=== PATIENT | female | born 1950 | race Caucasian/White ===

== ENCOUNTER → 2017-10-16 | Outpatient (CLI) | payer OTHER, MEDICAID ==
[~2017-10-16] MED LIST: ACETAMINOPHEN325 M1 PO; ADVAIR 250-501 EACH INH; AMBIEN 5 MG TABL5 M1 PO; AMITRIPTYLINE H25 M2 PO; AMLODIPINE BESY10 MG PO; AMLODIPINE BESYL5 MG PO; ASPIRIN EC81 M1 PO; ASPIRIN81 M2 PO; AVELOX 400 MG400 M1 PO; BUSPAR PO; BUSPAR30 MG; BUSPIRONE HCL7.5 MG PO; CALCIUM 500 +1 EAC5 PO; CALCIUM 600 +1 EAC1 PO; CARVEDILOL6.25 MG PO; CLONIDINE HCL0.2 M2 PO; CYMBALTA60 MG PO; DEMADEX10 MG PO; DULERA; DULERA 200 MCG/13 GM INH; ENDOCET 5-3251 EACH PO; FLEXERIL PO; FLONASE 0.05%50 MCG NASAL; GUAIFENESIN400 MG PO; HYDROCODONE-AP1 EAC6 PO; HYDROXYZINE HCL25 M1 PO; KLOR-CON 1010 MEQ PO; LASIX 20 MG TAB20 MG PO; LISINOPRIL20 MG PO; MAGNESIUM250 M1 PO; MAGNESIUM400 MG PO; MIRAPEX0.5 MG PO; MULTIVITAMINS PO; MULTIVITAMINS1 EAC7; NEURONTIN 300300 M1 PO; NEURONTIN600 MG PO; NEXIUM40 MG PO; NUCYNTA ER100 MG PO; NYSTATIN 1100000 U/M PO; ONDANSETRON HCL4 M2 PO; PNV FOLIC ACID1 EACH PO; POTASSIUM20; PREDNISONE 10 M10 M1 PO; PREMPRO 0.3 MG1 EACH PO; PROAIR HFA8.5 GM; PROAIR HFA8.5 GM INH; SINGULAIR 10 MG10 M1 PO; SYMBICORT160 MCG/4. INH; TOPROL XL25 MG PO; ULTRAM 50MG TAB50 MG PO; VITAMIN D400 UNI1 PO; VITAMINC500 PO
--- NOTE | 2017-11-04 10:23 | PAINCON ---
[address] [address] PAIN MANAGEMENT CONSULTATION Name: KAYEQING VINCE Room: [facility] Jay#: [id number] Admission: 10/16/17 Attend Phys: Mg Oneal MD Discharge: Date of : 50 Report #: [id number] THIS REPORT FOR: //name// CC: DEJAH Oneal DATE OF SERVICE: 10/16/2017 The patient has no primary physician. CHIEF COMPLAINT: Pain in the shoulder, wrist, legs, hip, and I have fibromyalgia. FOLLOWUP HISTORY: The patient is a 67-year-old female, who has been referred to the pain clinic for evaluation. The patient states that she has a plethora of problems with pain. She has pain in her shoulder, wrist, right hip, and legs. She describes it as achy, sharp and stabbing. Pain is worse after prolonged standing and with other activities of daily living. Notes that the pain is somewhat better when she elevates her legs. Less pain and discomfort while sleeping. Described her pain as steady, constant, shooting, aching, throbbing, sharp and stabbing. Rates it as an 8/10 at this juncture. The patient states that her primary care physician no longer accepts Medicaid. The patient states that she has used Leburn. She did have some problems with increased sensitivity to the medication. She states that she has fallen asleep while standing up. She states that she does not generally sleep well. She has been hospitalized because of flu and COPD at [facility]. Rates her pain as a 7/10 at this juncture. Finds that gabapentin and Cymbalta provides some benefit. Has used Leburn 5 mg, has taken one tablet per day. Feels that the Leburn medication is helpful for sleep. Things that exacerbate her problem are activity, cold temperatures, walking, sitting, standing, climbing stairs, lifting and bending. ALLERGIES: THEOPHYLLINE, IRON, DOXYCYCLINE, ERYTHROMYCIN, AZITHROMYCIN, BUPROPION, FLUTICASONE, ROPINIROLE, METHOCARBAMOL, METAXALONE, TRAMADOL, BUPRENORPHINE, AND TIZANIDINE. CURRENT MEDICATIONS: Albuterol (ProAir) 2 puffs q.i.d. shortness of breath, aspirin 81 mg, Symbicort 160/4.5 inhalation, buspirone 7.5 mg for anxiety b.i.d., Caltrate 650/vitamin D, Cymbalta 60 mg, Nexium 40 mg b.i.d., Flonase 0.05% nasal spray, Advair 250/50 one puff b.i.d., gabapentin 300 mg 1 p.o. t.i.d., guaifenesin 400 mg b.i.d., hydrocodone/acetaminophen 5/325 two tablets q.6 hours p.r.n., hydroxyzine 25 mg, Singulair 10 mg at bedtime, Zofran 4 mg q.8h. p.r.n., potassium 10 mEq daily, a total of 20, Mirapex 0.5 mg q.4 hours for muscle tremors, and BuSpar 15 mg b.i.d. PAST MEDICAL HISTORY: Anemia, asthma, hypertension, kidney disease, and joint disease/fibromyalgia. [facility] [address] [place] [address] PAIN MANAGEMENT CONSULTATION Name: QING RESTREPO Room: [facility]#: [id number] Admission: 10/16/17 Attend Phys: Mg Oneal MD Discharge: Date of : 50 Report #: [id number] PAST SURGICAL HISTORY: The patient states she had a gastric bypass, shoulder surgery in 2007, wrist surgery 2015, leg surgery 2012, and right hip 2017. SOCIAL HISTORY: The patient is retired. 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 REVIEW OF SYSTEMS: GENERAL: Good health, recent weight changes, fatigue, weakness, headaches, wears glasses, blurred vision, cataract/glaucoma, hearing loss/ringing in the ears, chronic sinus problems, heart trouble, swelling of feet and ankles, chronic frequent cough, shortness of breath, asthma, wheezing, bowel movement changes, nausea, vomiting, frequent diarrhea, abdominal pain, incontinence, dribbling, kidney stones, sexual difficulties, hot-cold intolerance, joint pain, joint stiffness, joint swelling, muscle cramps, back pain, difficulty walking, rash, changes in skin color, hair changes, varicose veins, frequent recurring headaches, numbness and tingling sensation, tremors, head injury, nervousness, depression, insomnia, anemia, and transfusions. RADIOLOGIC DATA: MRI dated 11/29/2014: 1. There is a mild fusiform disk bulge with no significant central canal stenosis or neural foraminal narrowing. Mild bilateral facet arthrosis and mild ligamentum flavum hypertrophy. Moderate to diffuse fatty infiltrate of the paraspinous musculature. 2. At L1-L2, there is moderate fusiform disk bulge with no evidence of disk herniation. Moderate bilateral facet arthrosis present as well as moderate ligamentum flavum hypertrophy. There is a note of diffuse fatty infiltrate on the paraspinous musculature. 3. At L3-L4, there is moderate fusiform disk bulge. There is some mild narrowing on the left. There is also abutment of the exiting L3 nerve root in the far lateral space. There is severe bilateral facet arthrosis and ligamentum flavum hypertrophy, resulting in severe spinal canal stenosis with clumping of the cauda equina. Diffuse fatty infiltration of the paraspinous musculature. 4. At L4-L5, moderate bilateral facet arthrosis present with moderate hypertrophy of the ligamentum flavum, resulting in moderate to severe canal stenosis, though to a lesser degree than at L3-L4. 5. At L5-S1, there is mild bilateral facet arthrosis. Mild or diffuse fatty infiltrates of the paraspinous musculature. PAIN CLINIC ASSESSMENT: 1. 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 Has some problems with hammertoes. 2. Height 5 feet 7 inches, weight 262 pounds, BMI is 41. 3. Vital Signs: Blood pressure 122/65, respiratory rate 16, heart rate 65, temperature 97.8, saturation was 94%, pain intensity 7-8. 4. Fall risk: The patient has not fallen. [place] [address] PAIN MANAGEMENT CONSULTATION Name: QING RESTREPO Room: [facility]#: [id number] Admission: 10/16/17 Attend Phys: Mg Oneal MD Discharge: Date of : 50 Report #: [id number] fallen asleep while standing. 5. The patient on blood thinner: The patient is not on a blood thinner 6. History of hypertension. The patient has not been treated for hypertension. 7. Opioid therapy contract. The patient has received some narcotic medications in the past few weeks. 8. Risk assessment tool. 9. Functional assessment tool. 10. Pain impact score of 37/70 indicating moderate amount of problems secondary to chronic pain. 11. Recreational drug use. The patient denies use of recreational drugs. 12. Tobacco: The patient denies use of tobacco. 13. Alcohol: The patient rarely drinks alcoholic beverages. PHYSICAL EXAMINATION: GENERAL: The patient is a well-developed female, who appears her stated age. Affect is appropriate. She is in no acute distress. HEENT: Normocephalic, atraumatic. Extraocular eye muscles are intact. Sclerae, nonicteric without nystagmus. Hearing is within normal limits. Mucous membranes are moist. The patient is edentulous. HEART: Regular rate. The patient states that she has had a heart monitor placed. CHEST: Generally clear to auscultation. ABDOMEN: Protuberant. EXTREMITIES: Weak upper extremities, somewhat difficult to assess the patient's strength given her ability to cooperate. Complains of some pain and discomfort with left-sided tilt while standing. Complains of muscle spasm in the lower back area with flexion and extension, left and right lumbar rotation. IMPRESSION: 1. Chronic obstructive pulmonary disease. 2. Chronic low back pain. 3. Bilateral shoulder pain, left and right. 4. Generalized muscle weakness. 5. Fibromyalgia. 6. Hypertension. RECOMMENDATION: The patient has some generalized pain. States that she has some pain in the lower extremities. It is hard to pin down exactly how much of her problem is secondary to muscle weakness, myofascial pain or what component is as a result of spinal stenosis. Palpation in the patient's back, shoulders, and low back are globally positive. I think the patient would glean benefits from physical therapy to increase her muscle strength. Oftentimes with an increase in muscle strength as well as more focused on painful areas. Oftentimes trigger points can present themselves. Problems with spinal stenosis can be more easily elicited. I would recommend that the patient try physical therapy to gain increased muscle strength and then possibly return to the pain [address] [place] [address] PAIN MANAGEMENT CONSULTATION Name: QING RESTREPO Room: [facility]#: [id number] Admission: 10/16/17 Attend Phys: Mg Oneal MD Discharge: Date of : 50 Report #: [id number] clinic for reevaluation. At this juncture, I see no obvious trigger points to inject given that the patient has global pain and discomfort. Difficult to assess her spinal stenosis symptomatology as well. We will have her try physical therapy and then possibly be able to render a better evaluation after the patient increases her activity level. We would like to thank you for letting us participate in her care. We hope she continues to improve. <ELECTRONICALLY SIGNED> By: Mg Oneal MD 11/04/17 1023 1532 1945N. Jamie Oneal MD /[facility]
== END ==
LOC: M.PC 01:57
DX: J44.9 Chronic obstructive pulmonary disease, unspecified (principal); I10 Essential (primary) hypertension; G89.29 Other chronic pain; M54.5 Low back pain; M25.511 Pain in right shoulder; M25.512 Pain in left shoulder; M62.81 Muscle weakness (generalized)

== ENCOUNTER → 2019-06-11 | Day surgery (SDC) | payer OTHER, MEDICAID ==
[~2019-06-11] MED LIST changes: +BENTYL 10 MG CA10 M1 PO; +CARAFATE1 GM PO; +COZAAR 50 MG TA50 M1 PO; +DULOXETINE HCL30 MG PO; +IPRAT-ALBUT 0.5-3 ML INH; +MAGNESIUM400 M1 PO; +OMEPRAZOLE40 MG PO
--- NOTE | ~2019-06-11 | PROC ---
[address] [address] PROCEDURE REPORT Name: QING RESTREPO Room: [facility].#: [id number] Admission: 06/11/19 Attend Phys: Alexx Watson MD Discharge: Date of : 50 Report #: [id number] THIS REPORT FOR: //name// For GI report, Please see the Provation report in Perceptive 7 content. By: 1350Medical Records Staff [facility] /ALVIN
[2019-06-11 09:03] LABS: HEMATOCRIT 36.5 % (37.0-47.0); HEMOGLOBIN 12.2 gm/dL (12.0-15.0); MCH 30.6 pg (26.0-34.0); MCHC 33.3 g/dL (28.0-37.0); MCV 91.8 fL (80.0-100.0); MPV 8.6 fl. (7.2-11.1); RBC 3.97 mil/uL (4.20-5.00); WBC 7.5 thou/uL (4.0-11.0)
[2019-06-11 09:13] LABS: CALCIUM 9.1 mg/dL (8.5-10.1); CREATININE 1.4 mg/dL (0.6-1.3); POTASSIUM 3.6 mmol/L (3.5-5.1)
[2019-06-11 09:18] LABS: ALBUMIN 3.4 g/dL (3.4-5.0); TOTAL BILIRUBIN 0.4 mg/dL (<0.1-1.0); TOTAL PROTEIN 6.5 g/dL (6.4-8.2)
--- NOTE | 2019-06-11 13:32 | EKG ---
[place] [address] ELECTROCARDIOGRAM REPORT Name: QING RESTREPO Room: [facility]#: [id number] Admission: 06/11/19 Attend Phys: Alexx Watson MD Discharge: Date of : 50 Report #: [id number] THIS REPORT FOR: //name// [facility] Test Date: 2019-06-11 Test Time: 09:18:34 Pat Name: QING RESTREPO Department: Room: Gender: F Pediatric Cardiologist: : 1950 Requested By: Alexx Watson Order Number: [id number] Reading MD: Del Richardson Measurements Intervals [place] Rate: 63 P: 24 OR: 219 QRS: -61 QRSD: 185 T: 3 QT: 475 QTc: 487 Interpretive Statements Sinus rhythm Atrial premature complexes Borderline prolonged OR interval RBBB and LAFB Probable left ventricular hypertrophy Baseline wander in lead(s) V3 No previous ECG available for comparison Electronically Signed On 06-11-2019 13:31:48 [employer] by Del Richardson [email or web address] <ELECTRONICALLY SIGNED> By: Del Richardson MD, [facility] 06/11/19 1331 Del Richardson MD, [facility] /EPI
== END | disposition home or self-care (01) ==
LOC: M.SUR 07:01
PROVIDERS: Internal Medicine Gastroenterology
DX: Q39.5 Congenital dilatation of esophagus (principal); K27.9 Peptic ulcer, site unspecified, unspecified as acute or chronic, without hemorrhage or perforation; K21.9 Gastro-esophageal reflux disease without esophagitis; M19.90 Unspecified osteoarthritis, unspecified site; J45.909 Unspecified asthma, uncomplicated; N18.3 Chronic kidney disease, stage 3 (moderate); I50.9 Heart failure, unspecified; F41.9 Anxiety disorder, unspecified; F32.9 Major depressive disorder, single episode, unspecified; M79.7 Fibromyalgia; G47.30 Sleep apnea, unspecified; Z86.010 Personal history of colon polyps; Z98.890 Other specified postprocedural states; Z90.49 Acquired absence of other specified parts of digestive tract; Z96.642 Presence of left artificial hip joint; Z98.0 Intestinal bypass and anastomosis status; Z98.84 Bariatric surgery status; Z79.899 Other long term (current) drug therapy